=== PATIENT | male | born 1960 | race Caucasian/White ===

== ENCOUNTER → 2019-05-09 | Outpatient (CLI) | payer OTHER ==
--- NOTE | 2019-05-09 17:05 | CT ---
Procedure: CT LUNG SCREENING Exam Date: 05/09/2019. Ordering Provider: Dm Baron Clinical Indication: Personal history of tobacco use. Current cigarette smoker. 40 pack years. This patient meets eligibility criteria for low-dose CT lung cancer screening. Comparison: CT scan of the chest and thorax with and without contrast 06/23/2016. Technique: Using a multislice scanner, sequential helical axial imaging was obtained in the thorax, 2.5 mm thickness, 2.5 mm separation, from the level of the thoracic inlet through the lung bases without IV contrast. A low dose protocol was utilized for BMI less than 30: BMI: 29.8. CTDI: 1.76 mGy. 120. kVp. 45 mA. DLP: 73.28 mGy-centimeters. 2D sagittal and coronal reconstructed images, 6.0 mm thickness, were obtained. This exam was performed according to our departmental dose optimization program which includes use of automated exposure control, adjustment of the mA and/or kV according to patient size and/or use of iterative reconstruction technique. Nodule measurements under 10 mm are given as mean value of 3 axes diameters. FINDINGS: Lungs and large airways: Minimal peribronchial cuffing bilaterally. Minimally bilaterally. No abnormal nodules, no masses. No focal infiltrates. Pleura and space: Scattered bilateral focal thickening with no effusion or pneumothorax. Mediastinum and simran: evaluation limited by low dose technique and lack of IV contrast. Normal sized lymph nodes with the largest node approximately 1 cm in the subcarinal space. No dominant soft tissue masses. Heart and great vessels: Minimal calcifications in the pancreas evaluate vessels, aortic arch, and few calcifications in the coronary arteries. Chest wall, lower neck, axillae: Evaluation also limited by same factors as described above. 3.5 x 1.1 cm left axillary lymph node. 2.6 x 1 point for centimeter left axillary lymph node. Upper abdomen: Evaluation limited by low-dose technique. No free air or fluid in the included peritoneal space. Normal size and density of the adrenal glands and spleen. Partial visualization of the gallbladder. Osseous structures: Evaluation limited by low dose MIP technique. Minimal spondylosis in the thoracic spine. No lytic or blastic lesions. IMPRESSION: 1. Minimal bronchial wall thickening in the perihilar regions. Bilaterally minimally dilated airspaces, predominantly upper lung reyes. No abnormal nodules, no masses, or focal infiltrates. [facility] Best Practice recommendations: Please see below for Lung RADS category and FOLLOW-UP.* *Lung RADS category Category 1S - No nodule or definitely benign nodules (probability of malignancy less than 1%). Follow-up: Continue annual screening with Low Dose Chest CT in 12 months. 2. Lung RADS Modifier S - Clinically Significant or Potentially Clinically Significant Findings (non lung cancer). Bilateral enlarged lymph nodes in the axilla. Consider evaluation with ultrasound, along with any palpable axillary masses. Electronically signed by: Pravin Thomson MD 05/09/2019 5:02 PM CDT
== END ==
LOC: CT 10:00
PROVIDERS: ATTEND Family Medicine
DX: Z87.891 Personal history of nicotine dependence (principal); J98.4 Other disorders of lung
CPT/HCPCS: 10061; G0297

== ENCOUNTER 2019-06-11 | Emergency (ER) | payer OTHER ==
--- NOTE | 2019-06-11 15:47 | ED.PDOC ---
History of Present Illness - General Chief Complaint: General Stated Complaint: right shoulder pain, chronic Time Seen by Provider: 06/11/19 15:45 Source: patient Exam Limitations: no limitations - History of Present Illness Initial Comments: the patient is a 58-year-old male presenting with right shoulder pain that has been present for the last 20 years. He has been told multiple times in the past that he needs a joint replacement. He is having increased pain over the last few weeks because he has lost his pain management. No recent trauma. No new symptoms. He has pain over the right rhomboid muscle, over the right ac joint and he has obvious rotator cuff deficits with limitations in flexion and abduction. No neurological changes. Again no recent trauma. He appears to be vascularly intact. Timing/Duration: constant Severity: moderate Improving Factors: immobilization Worsening Factors: movement Associated Symptoms: denies symptoms Allergies/Adverse Reactions: Allergies NO KNOWN ALLERGY Allergy (Verified 06/11/19 14:30) Home Medications: Ambulatory Orders Cyclobenzaprine HCl [Flexeril] 10 mg PO TID PRN #20 tab 06/11/19 Lisinopril 06/11/19 Tramadol HCl 50 mg PO Q8HR PRN #30 tab 06/11/19 predniSONE [Prednisone] 20 mg PO DAILY #5 tab 06/11/19 Review of Systems - Review of Systems Constitutional: States: no symptoms reported EENTM: States: no symptoms reported Respiratory: States: no symptoms reported Cardiology: States: no symptoms reported Gastrointestinal/Abdominal: States: no symptoms reported Genitourinary: States: no symptoms reported Musculoskeletal: States: see HPI Skin: States: no symptoms reported Neurological: States: no symptoms reported Endocrine: States: no symptoms reported All other Systems: No Change from Baseline Past Medical History (General) - Patient Medical History Hx Seizures: No Hx Stroke: No Hx Dementia: No Hx Asthma: No Hx of COPD: No Hx Cardiac Disorders: No Hx Congestive Heart Failure: No Hx Pacemaker: No Hx Hypertension: Yes Hx Thyroid Disease: No Hx Diabetes: No Hx Gastroesophageal Reflux: No Hx Renal Disease: No Hx Cancer: No Hx of HIV: No Hx Hepatitis C: No Hx MRSA: No Surgical History: appendectomy - Vaccination History Hx Tetanus, Diphtheria Vaccination: No Hx Influenza Vaccination: No Hx Pneumococcal Vaccination: No Immunizations Up to Date: No - Social History Hx Tobacco Use: Yes Hx Chewing Tobacco Use: No Hx Alcohol Use: Yes Hx Substance Use: No Hx Substance Use Treatment: No Hx Depression: No Feels Threatened In Home Enviroment: No Feels Threatened In a Relationship: No Hx Physical Abuse: No Hx Emotional Abuse: No Hx Suspected Abuse: No - Female History Patient is a Female of Child Bearing Age (10 -59 yrs old): No Patient : No Family Medical History - Family History Mother Family History: No Known Living Status: Unknown Hx Family Asthma: No Hx Family Congestive Heart Failure: No Hx Family Hypertension: No Hx Family Stroke: No Hx Cardiac Disease: No Hx Family Diabetes: No Hx Family Cancer: No Physical Exam - Physical Exam General Appearance: Alert, Comfortable, No apparent distress Eye Exam: bilateral normal Ears, Nose, Throat: hearing grossly normal, normal ENT inspection Neck: full range of motion, supple Respiratory: no respiratory distress, no accessory muscle use Cardiovascular/Chest: normal peripheral pulses, no edema Peripheral Pulses: radial,right: 2+, radial,left: 2+ Rectal Exam: deferred Back Exam: no vertebral tenderness, other - tenderness to palpation over the right rhomboid muscle Extremity: no pedal edema, no calf tenderness, normal capillary refill, other Neurologic: skip pitman II-XII nml as tested, alert, normal mood/affect, oriented x 3 Skin Exam: normal color Comments: Vital Signs - 24 hr 06/11/19 06/11/19 14:32 15:28 Temperature 98.9 F Pulse Rate [ 82 64 Left Apical] Respiratory 18 18 Rate Blood Pressure 140/90 113/79 [Left Arm] O2 Sat by Pulse 98 98 Oximetry Progress - Progress Progress: 06/11/19 15:47 the patient is a 58-year-old male presenting to the emergency room secondary to chronic right shoulder pain worse since he has lost his pain management. He does need to try to do range of motion exercises and stretching exercises for the shoulder to prevent freezing up. He'll be written for some tramadol and Flexeril as well as some prednisone for the next week or so. He needs to get back with orthopedics and get his shoulder fixed. ER warnings were given. Departure - Departure Clinical Impression: Chronic shoulder pain Qualifiers: Laterality: right Qualified Code(s): M25.511 - Pain in right shoulder; G89.29 - Other chronic pain Disposition: Discharge to Home or Self Care Condition: Fair Departure Forms: ED Discharge - Pt. Copy, Patient Portal Self Enrollment Diet: regular diet Activity: increase activity as tolerated Referrals: JHONNY BAILEY IV [facility] [Primary Care Provider] - 1-2 Weeks Prescriptions: Tramadol HCl 50 mg PO Q8HR PRN #30 tab PRN Reason: Moderate Pain Cyclobenzaprine HCl [Flexeril] 10 mg PO TID PRN #20 tab PRN Reason: Muscle Spasms predniSONE [Prednisone] 20 mg PO DAILY #5 tab Home Medications: Ambulatory Orders Cyclobenzaprine HCl [Flexeril] 10 mg PO TID PRN #20 tab 06/11/19 Lisinopril 06/11/19 Tramadol HCl 50 mg PO Q8HR PRN #30 tab 06/11/19 predniSONE [Prednisone] 20 mg PO DAILY #5 tab 06/11/19 Additional Instructions: the patient is a 58-year-old male presenting to the emergency room secondary to chronic right shoulder pain worse since he has lost his pain management. He does need to try to do range of motion exercises and stretching exercises for the shoulder to prevent freezing up. He'll be written for some tramadol and Flexeril as well as some prednisone for the next week or so. He needs to get back with orthopedics and get his shoulder fixed. ER warnings were given.
== END 2019-06-11 16:00 | disposition home or self-care (01) ==

== ENCOUNTER 2019-07-08 16:08 | Emergency (ER) | payer OTHER ==
--- NOTE | 2019-07-08 17:22 | ED.PDOC ---
History of Present Illness - General Chief Complaint: Skin/Abrasion/Tear Time Seen by Provider: 07/08/19 17:20 Source: patient Exam Limitations: no limitations - History of Present Illness Initial Comments: the patient is a 58-year-old male presenting to emergency room secondary to recurrent breakout of a rash to his forearms and the posterior aspects of his lower legs. This has occurred on multiple occasions for him. The rash does itch and he does scratch until he forms a scab. He does have significant dry skin. No hives. Rash is papular. No obvious vesicles. Rash is most consistent with a contact dermatitis. Timing/Duration: 1 week Severity: moderate Improving Factors: nothing Worsening Factors: nothing Associated Symptoms: denies symptoms Allergies/Adverse Reactions: Allergies NO KNOWN ALLERGY Allergy (Verified 06/11/19 14:30) Home Medications: Ambulatory Orders Cyclobenzaprine HCl [Flexeril] 10 mg PO TID PRN #20 tab 06/11/19 Lisinopril 06/11/19 Tramadol HCl 50 mg PO Q8HR PRN #30 tab 06/11/19 predniSONE [Prednisone] 20 mg PO DAILY #5 tab 06/11/19 predniSONE [Prednisone] 20 mg PO DAILY #7 tab 07/08/19 Review of Systems - Review of Systems Constitutional: States: no symptoms reported EENTM: States: no symptoms reported Respiratory: States: no symptoms reported Cardiology: States: no symptoms reported Gastrointestinal/Abdominal: States: no symptoms reported Genitourinary: States: no symptoms reported Musculoskeletal: States: no symptoms reported Skin: States: see HPI Neurological: States: no symptoms reported Endocrine: States: no symptoms reported All other Systems: No Change from Baseline Past Medical History (General) - Patient Medical History Hx Seizures: No Hx Stroke: No Hx Dementia: No Hx Asthma: No Hx of COPD: No Hx Cardiac Disorders: No Hx Congestive Heart Failure: No Hx Pacemaker: No Hx Hypertension: Yes Hx Thyroid Disease: No Hx Diabetes: No Hx Gastroesophageal Reflux: No Hx Renal Disease: No Hx Cancer: No Hx of HIV: No Hx Hepatitis C: No Hx MRSA: No - Vaccination History Hx Tetanus, Diphtheria Vaccination: No Hx Influenza Vaccination: No Hx Pneumococcal Vaccination: No - Social History Hx Tobacco Use: Yes Hx Chewing Tobacco Use: No Hx Alcohol Use: Yes Hx Substance Use: No Hx Substance Use Treatment: No Hx Depression: No Hx Physical Abuse: No Hx Emotional Abuse: No Hx Suspected Abuse: No - Female History Patient : No Family Medical History - Family History Mother Family History: No Known Living Status: Unknown Hx Family Asthma: No Hx Family Congestive Heart Failure: No Hx Family Hypertension: No Hx Family Stroke: No Hx Cardiac Disease: No Hx Family Diabetes: No Hx Family Cancer: No Physical Exam - Physical Exam General Appearance: Alert, Comfortable, No apparent distress Eye Exam: bilateral normal Ears, Nose, Throat: hearing grossly normal Neck: full range of motion Respiratory: no respiratory distress, no accessory muscle use Cardiovascular/Chest: normal peripheral pulses, no edema, other - regular rate Peripheral Pulses: radial,right: 2+, radial,left: 2+, dorsalis pedis,right: 2+, dorsalis pedis,left: 2+ Gastrointestinal/Abdominal: soft Rectal Exam: deferred Back Exam: no CVA tenderness, no vertebral tenderness Extremity: normal range of motion, no pedal edema, normal capillary refill Neurologic: scientific research associate II-XII nml as tested, alert, normal mood/affect, oriented x 3 Skin Exam: other - see history of present illness Progress - Progress Progress: 07/08/19 17:22 the patient is a 58-year-old male presenting with what appears to be a contact dermatitis. The patient needs to order picker/assembler Eucerin cream and apply that 2-3 times daily to the affected areas. He is going to be written for 7 days of oral prednisone to help reduce the reaction. ER warnings were given. No evidence of infection at this time. Keep routine follow up with primary care doctor. aldo [email or web address] [id number] Departure - Departure Clinical Impression: Contact dermatitis and eczema Disposition: Discharge to Home or Self Care Condition: Fair Departure Forms: ED Discharge - Pt. Copy, Patient Portal Self Enrollment Instructions: Contact Dermatitis (DC) Diet: regular diet Activity: increase activity as tolerated Referrals: JHONNY BAILEY IV [facility] [Primary Care Provider] - 1-2 Weeks Prescriptions: predniSONE [Prednisone] 20 mg PO DAILY #7 tab Home Medications: Ambulatory Orders Cyclobenzaprine HCl [Flexeril] 10 mg PO TID PRN #20 tab 06/11/19 Lisinopril 06/11/19 Tramadol HCl 50 mg PO Q8HR PRN #30 tab 06/11/19 predniSONE [Prednisone] 20 mg PO DAILY #5 tab 06/11/19 predniSONE [Prednisone] 20 mg PO DAILY #7 tab 07/08/19 Additional Instructions: the patient is a 58-year-old male presenting with what appears to be a contact dermatitis. The patient needs to order picker/assembler Eucerin cream and apply that 2-3 times daily to the affected areas. He is going to be written for 7 days of oral prednisone to help reduce the reaction. ER warnings were given. No evidence of infection at this time. Keep routine follow up with primary care doctor.
[2019-07-08] MEDS ORDERED: predniSONE 20 MG TAB PO ONE (17:24)
[2019-07-08 17:46] VITALS: BP 148/79; TEMP 98.3; O2SAT 98
== END 2019-07-08 17:45 | disposition home or self-care (01) ==
LOC: ER 16:08
DX: L25.9 Unspecified contact dermatitis, unspecified cause (principal); I10 Essential (primary) hypertension; Z87.891 Personal history of nicotine dependence; Z79.899 Other long term (current) drug therapy

== ENCOUNTER 2019-08-04 09:12 | Emergency (ER) | payer OTHER ==
[2019-08-04] MEDS ORDERED: SODIUM CHLORIDE 0.9% 1000ML 1,000 ML IVS ONE (09:31)
--- NOTE | 2019-08-04 09:36 | ED.PDOC ---
History of Present Illness - General Chief Complaint: Eye Problems Stated Complaint: L eye swelling/itching x 1 day Time Seen by Provider: 08/04/19 09:30 Source: patient, RN notes reviewed, Vital Signs reviewed Exam Limitations: no limitations - History of Present Illness Initial Comments: patient is a 58-year-old white male who appears older than his stated age presents with complaints of left eye pain, swelling and itching.patient states that all of this started yesterday afternoon but was significantly worse this morning. The eye itself catches. He denies any mucopurulent discharge. On any blood thinners. Patient denies any blurry vision, headaches, nausea, vomiting, diarrhea, chest pain, shortness of breath or weakness. Patient denies any dizziness or vertiginous symptoms. Nothing seems to make the swelling or pain worse or better. Timing/Duration: gradual, yesterday Severity: moderate EENT Location: eye (L) - it appears also starting on the right eye now. Prearrival Treatment: no prearrival treatment Improving Factors: nothing Worsening Factors: nothing Associated Symptoms: facial pain/swelling Allergies/Adverse Reactions: Allergies NO KNOWN ALLERGY Allergy (Verified 08/04/19 09:30) Home Medications: Ambulatory Orders Lisinopril 20 mg PO DAILY 06/11/19 Clonazepam 1 mg PO BID 07/08/19 Gabapentin 600 mg PO TID 07/08/19 tiZANidine [Zanaflex] 4 mg PO TID 07/08/19 Clindamycin HCl [Cleocin] 300 mg PO QID #28 cap 08/04/19 Clindamycin HCl [Cleocin] 300 mg PO QID #28 cap 08/04/19 Review of Systems - Review of Systems Constitutional: States: no symptoms reported, see HPI. Denies: fever, malaise EENTM: States: see HPI, eye pain - mild and itchy.. Denies: blurred vision, tearing, double vision, ear discharge, nose pain, nose congestion, throat pain, throat swelling, mouth pain, mouth swelling Respiratory: States: no symptoms reported Cardiology: States: no symptoms reported Gastrointestinal/Abdominal: States: no symptoms reported Genitourinary: States: no symptoms reported Musculoskeletal: States: no symptoms reported Skin: States: no symptoms reported Neurological: States: no symptoms reported Endocrine: States: no symptoms reported Hematologic/Lymphatic: States: no symptoms reported All other Systems: Reviewed and Negative Past Medical History (General) - Patient Medical History Hx Seizures: No Hx Stroke: No Hx Dementia: No Hx Asthma: No Hx of COPD: No Hx Cardiac Disorders: No Hx Congestive Heart Failure: No Hx Pacemaker: No Hx Hypertension: Yes Hx Thyroid Disease: No Hx Diabetes: No Hx Gastroesophageal Reflux: No Hx Renal Disease: No Hx Cancer: No Hx of HIV: No Hx Hepatitis C: No Hx MRSA: No Surgical History: other - Vaccination History Hx Tetanus, Diphtheria Vaccination: No Hx Influenza Vaccination: Yes Hx Pneumococcal Vaccination: No - Social History Hx Tobacco Use: Yes Hx Chewing Tobacco Use: No Hx Alcohol Use: No Hx Substance Use: No Hx Substance Use Treatment: No Hx Depression: Yes Hx Physical Abuse: No Hx Emotional Abuse: No Hx Suspected Abuse: No - Female History Patient is a Female of Child Bearing Age (10 -59 yrs old): No Patient : No Family Medical History - Family History Mother Family History: No Known Living Status: Unknown Hx Family Asthma: No Hx Family Congestive Heart Failure: No Hx Family Hypertension: No Hx Family Stroke: No Hx Cardiac Disease: No Hx Family Diabetes: Yes Hx Family Cancer: No Physical Exam - Physical Exam General Appearance: Alert, Comfortable, Well Developed, Well Hydrated, Well Nourished Eye Exam: left other - patient with marked inferior lid edema with puffiness and tender to palpation. This area is warm., bilateral normal Ear Exam: bilateral ear: auricle normal Nasal Exam: normal inspection Throat Exam: normal mouth inspection, pharynx normal Neck: non-tender, full range of motion, supple, normal inspection, trachea midline Cardiovascular/Respiratory: regular rate, rhythm, no M/R/G, normal peripheral pulses, normal breath sounds, no respiratory distress Abdominal Exam: non-tender, no organomegaly Neurologic: product support rep II-XII nml as tested, no motor/sensory deficits, alert, normal mood/affect, oriented x 3 Skin Exam: normal color, warm/dry, other - patient with left periorbital swelling and edema. Progress - Progress Progress: 08/04/19 12:04 patient has been resting quietly in the department. He is nontoxic in appearance. Laboratory work has returned showing a white count of 12 with left shift consistent with infection. Eyes show an area of preseptal edema and cellulitis. plan discharge home with a prescription for antibiotics and follow up with PCP. I discussed the plan of care with the patient and he voices under standing and agreement. Pancho Gaffney M.D. #[id number] - Results/Orders Results/Orders: Laboratory Results - last 24 hr 08/04/19 08/04/19 09:46 09:46 WBC 12.0 H RBC 5.35 Hgb 16.9 Hct 50.2 MCV 94.0 MCH 31.7 H MCHC 33.7 RDW 13.3 Plt Count 237 MPV 8.0 Absolute Neuts (auto) 8.70 H Absolute Lymphs (auto) 1.90 Absolute Monos (auto) 0.90 H Absolute Eos (auto) 0.40 Absolute Basos (auto) 0.10 Neutrophils % 72.4 Lymphocytes % 15.9 L Monocytes % 7.7 Eosinophils % 3.2 Basophils % 0.8 Sodium 139 Potassium 4.1 Chloride 105 Carbon Dioxide 22 Anion Gap 16.1 BUN 12 Creatinine 0.88 BUN/Creatinine Ratio 13.6 Random Glucose 108 H Serum Osmolality 277.8 Calcium 9.0 Total Bilirubin 0.3 AST 22 ALT 26 Alkaline Phosphatase 85 Serum Total Protein 7.4 Albumin 4.0 Globulin 3.4 Albumin/Globulin Ratio 1.2 CT ORBITS WITH IV CONTRAST 08/04/2019 9:30 AM CDT Clinical: left periorbital swelling MAIN Comparison: No prior exam. Technique: Axial images were obtained. Sagittal and coronal MPR images are also submitted. The DLP is 184 mGy*cm. This exam was performed according to our department dose optimization protocol, which includes automated exposure control, adjustment of the mA and/or kV according to patient size and/or use of iterative reconstruction technique. Intravenous iodinated contrast was given. Findings: Deformity of the right nasal bone is noted suggestive of old fracture. No evidence of acute fracture or deformity is noted. Normal appearance of the globes and retrobulbar regions are noted. The optic nerves appear normal. Extraocular muscles appear normal. Minimal infraorbital preseptal soft tissue swelling is noted on the left side. No evidence of radiopaque foreign body is noted. Paranasal sinuses are clear. Normal appearance of the cavernous sinus and major intracranial vessels are noted. IMPRESSION: Mild degree of left preseptal infraorbital soft tissue swelling. Deformity of the right nasal bone suggestive of an old healed fracture. Electronically signed by: Jamila Kingston MD 08/04/2019 11:43 AM Departure - Departure Clinical Impression: Periorbital cellulitis of left eye Time of Disposition: 12:13 Disposition: Discharge to Home or Self Care Condition: Good Departure Forms: ED Discharge - Pt. Copy, Patient Portal Self Enrollment Instructions: DI for Eye Pain, Orbital Cellulitis (DC) Referrals: JHONNY BAILEY IV, LABEL CODER [Primary Care Provider] - 1-5 Days Prescriptions: Clindamycin HCl [Cleocin] 300 mg PO QID #28 cap Clindamycin HCl [Cleocin] 300 mg PO QID #28 cap Home Medications: Ambulatory Orders Lisinopril 20 mg PO DAILY 06/11/19 Clonazepam 1 mg PO BID 07/08/19 Gabapentin 600 mg PO TID 07/08/19 tiZANidine [Zanaflex] 4 mg PO TID 07/08/19 Clindamycin HCl [Cleocin] 300 mg PO QID #28 cap 08/04/19 Clindamycin HCl [Cleocin] 300 mg PO QID #28 cap 08/04/19
--- NOTE | 2019-08-04 11:44 | CT ---
CT ORBITS WITH IV CONTRAST 08/04/2019 9:30 AM CDT Clinical: left periorbital swelling MAIN Comparison: No prior exam. Technique: Axial images were obtained. Sagittal and coronal MPR images are also submitted. The DLP is 184 mGy*cm. This exam was performed according to our department dose optimization protocol, which includes automated exposure control, adjustment of the mA and/or kV according to patient size and/or use of iterative reconstruction technique. Intravenous iodinated contrast was given. Findings: Deformity of the right nasal bone is noted suggestive of old fracture. No evidence of acute fracture or deformity is noted. Normal appearance of the globes and retrobulbar regions are noted. The optic nerves appear normal. Extraocular muscles appear normal. Minimal infraorbital preseptal soft tissue swelling is noted on the left side. No evidence of radiopaque foreign body is noted. Paranasal sinuses are clear. Normal appearance of the cavernous sinus and major intracranial vessels are noted. IMPRESSION: Mild degree of left preseptal infraorbital soft tissue swelling. Deformity of the right nasal bone suggestive of an old healed fracture. Electronically signed by: Jamila Kingston MD 08/04/2019 11:43 AM CDT
[2019-08-04 12:30] VITALS: BP 151/99; TEMP 97; O2SAT 98
== END 2019-08-04 12:35 | disposition home or self-care (01) ==
LOC: ER 09:12
DX: L03.213 Periorbital cellulitis (principal); F32.9 Major depressive disorder, single episode, unspecified; I10 Essential (primary) hypertension; Z87.891 Personal history of nicotine dependence; Z79.899 Other long term (current) drug therapy
CPT/HCPCS: 36415; 70480; 80053; 85025; J7030

== ENCOUNTER 2019-09-30 14:19 | Emergency (ER) | payer OTHER ==
[2019-09-30] MEDS ORDERED: CYCLOBENZAPRINE HCL 10 MG TAB PO ONE (14:33)
[2019-09-30] MEDS ORDERED: predniSONE 20 MG TAB PO ONE (14:33)
[2019-09-30] MEDS ORDERED: ACETAMINOPHEN-CAFF-BUTALBITAL 1 EA TAB PO ONE (14:33)
--- NOTE | 2019-09-30 14:36 | ED.PDOC ---
History of Present Illness - General Chief Complaint: Upper Extremity Injury Stated Complaint: rotator cuff injuries Time Seen by Provider: 09/30/19 14:20 Source: patient Exam Limitations: no limitations - History of Present Illness Initial Comments: the patient a 58-year-old male presenting to emergency room secondary to severe chronic persistent bilateral shoulder pain related to DJD of the shoulder joints bilaterally along with DJD of the ac joints and chronic rotator cuff injuries. He reports that he has been denied surgical intervention by his insurance company. the patient has been taking [id number] anti- inflammatories. He reports that he has not slept in 4 days due to the pain. He has been unable to obtain a new pain management doctor as there are none available in the surrounding area. No new injuries. No acute neurological changes. No recent trauma. He does have pain diffusely surrounding the shoulder. Movement is severely limited in bilateral shoulders. Timing/Duration: constant, getting worse Severity: severe Improving Factors: immobilization Worsening Factors: movement Associated Symptoms: denies symptoms Allergies/Adverse Reactions: Allergies NO KNOWN ALLERGY Allergy (Verified 08/04/19 09:30) Home Medications: Ambulatory Orders Lisinopril 20 mg PO DAILY 06/11/19 Roqjazmutsbmo-Whon-Jtmdvneqpa [Fioricet] 1 ea PO Q8H PRN #30 tab 09/30/19 Cyclobenzaprine HCl [Flexeril] 10 mg PO TID PRN #20 tab 09/30/19 predniSONE [Prednisone] 20 mg PO DAILY #5 tab 09/30/19 Review of Systems - Review of Systems Constitutional: States: no symptoms reported EENTM: States: no symptoms reported Respiratory: States: no symptoms reported Cardiology: States: no symptoms reported Gastrointestinal/Abdominal: States: no symptoms reported Genitourinary: States: no symptoms reported Musculoskeletal: States: see HPI, back pain Skin: States: no symptoms reported Neurological: States: no symptoms reported Endocrine: States: no symptoms reported All other Systems: No Change from Baseline Past Medical History (General) - Patient Medical History Hx Seizures: No Hx Stroke: No Hx Dementia: No Hx Asthma: No Hx of COPD: No Hx Cardiac Disorders: No Hx Congestive Heart Failure: No Hx Pacemaker: No Hx Hypertension: Yes Hx Thyroid Disease: No Hx Diabetes: No Hx Gastroesophageal Reflux: No Hx Renal Disease: No Hx Cancer: No Hx of HIV: No Hx Hepatitis C: No Hx MRSA: No - Vaccination History Hx Tetanus, Diphtheria Vaccination: No Hx Influenza Vaccination: Yes Hx Pneumococcal Vaccination: No - Social History Hx Tobacco Use: Yes Hx Chewing Tobacco Use: No Hx Alcohol Use: No Hx Substance Use: No Hx Substance Use Treatment: No Hx Depression: Yes Hx Physical Abuse: No Hx Emotional Abuse: No Hx Suspected Abuse: No - Female History Patient : No Family Medical History - Family History Mother Family History: No Known Living Status: Unknown Hx Family Asthma: No Hx Family Congestive Heart Failure: No Hx Family Hypertension: No Hx Family Stroke: No Hx Cardiac Disease: No Hx Family Diabetes: Yes Hx Family Cancer: No Physical Exam - Physical Exam General Appearance: Alert, No apparent distress Eye Exam: bilateral normal Ears, Nose, Throat: hearing grossly normal, normal pharynx Respiratory: no respiratory distress, no accessory muscle use Cardiovascular/Chest: normal peripheral pulses, no edema Peripheral Pulses: radial,right: 2+, radial,left: 2+ Rectal Exam: deferred Back Exam: other - tenderness to palpation over the right rhomboid muscle. Extremity: no pedal edema, normal capillary refill, other - see history of present illness. 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 He is having persistent bilateral chronic shoulder pain related to degenerative disease. The patient will be written for prednisone for the next 5 days and he will be written for as needed use Flexeril and Fioricet. He does need to obtain an appointment with his primary care doctor for follow-up. Stretching and range of motion exercises as much can be tolerated, should be done. ER warnings were given for any acute worsening. Topical heat may help as well. aldo askew [id number] Departure - Departure Clinical Impression: Uncontrolled pain DJD of both shoulders Qualifiers: Osteoarthritis type: unspecified Qualified Code(s): M19.011 - Primary osteoarthritis, right shoulder; M19.012 - Primary osteoarthritis, left shoulder Disposition: Discharge to Home or Self Care Condition: Fair Departure Forms: ED Discharge - Pt. Copy, Patient Portal Self Enrollment Instructions: DI for Frozen Shoulder Diet: regular diet Activity: increase activity as tolerated Referrals: JHONNY BAILEY IV HEALTH EDUCATION TEACHER [Primary Care Provider] - 1-5 Days Prescriptions: Tcaqnjblyipjp-Hetu-Oakpjmhzqi [Fioricet] 1 ea PO Q8H PRN #30 tab PRN Reason: Pain Cyclobenzaprine HCl [Flexeril] 10 mg PO TID PRN #20 tab PRN Reason: Muscle Spasms predniSONE [Prednisone] 20 mg PO DAILY #5 tab Home Medications: Ambulatory Orders Lisinopril 20 mg PO DAILY 06/11/19 Ezexdohorijco-Svme-Tddpcbngpe [Fioricet] 1 ea PO Q8H PRN #30 tab 09/30/19 Cyclobenzaprine HCl [Flexeril] 10 mg PO TID PRN #20 tab 09/30/19 predniSONE [Prednisone] 20 mg PO DAILY #5 tab 09/30/19 Additional Instructions: the patient's 58-year-old male that has been seen here before for the same problem. He is having persistent bilateral chronic shoulder pain related to degenerative disease. The patient will be written for prednisone for the next 5 days and he will be written for as needed use Flexeril and Fioricet. He does need to obtain an appointment with his primary care doctor for follow-up. Stretching and range of motion exercises as much can be tolerated, should be done. ER warnings were given for any acute worsening. Topical heat may help as well.
[2019-09-30 14:52] VITALS: BP 171/107; TEMP 98.4; O2SAT 97
== END 2019-09-30 15:12 | disposition home or self-care (01) ==
LOC: ER 14:19
DX: M19.012 Primary osteoarthritis, left shoulder (principal); M19.011 Primary osteoarthritis, right shoulder; G89.29 Other chronic pain; F32.9 Major depressive disorder, single episode, unspecified; I10 Essential (primary) hypertension; Z87.891 Personal history of nicotine dependence; Z79.899 Other long term (current) drug therapy

== ENCOUNTER → 2019-10-29 | Outpatient (CLI) | payer OTHER | LOC: LAB.O 07:31 | PROVIDERS: ATTEND Family Medicine | DX: Z00.00 Encounter for general adult medical examination without abnormal findings (principal); I10 Essential (primary) hypertension; E78.5 Hyperlipidemia, unspecified; R53.83 Other fatigue; Z79.899 Other long term (current) drug therapy ==

== ENCOUNTER → 2019-11-02 | Outpatient (CLI) | payer OTHER ==
--- NOTE | 2019-11-03 22:45 | RAD ---
EXAM: Shoulder,Right 2 or More Views CLINICAL HISTORY: SHOULDER PAIN COMPARISON STUDY: None TECHNICAL: Internal and external rotation views of the shoulder in AP projection. FINDINGS: Internal and external rotation views of the shoulder in AP projection show no evidence of fracture or dislocation. There is no evidence of significant arthritic change. No soft tissue calcification is seen. The AC joint is unremarkable. IMPRESSION: UNREMARKABLE TWO VIEW RIGHT SHOULDER. Electronically signed by: Delmer Ford MD 11/03/2019 10:43 PM [facility]
--- NOTE | 2019-11-03 22:46 | RAD ---
EXAM: Shoulder,Left 2 or More Views CLINICAL HISTORY: SHOULDER PAIN COMPARISON STUDY: TECHNICAL: Internal and external rotation views of the shoulder in AP projection. FINDINGS: Internal and external rotation views of the shoulder in AP projection show no evidence of fracture or dislocation. There is no evidence of significant arthritic change. Chronic changes are seen along the greater tuberosity. No soft tissue calcification is seen. The AC joint is unremarkable. IMPRESSION: 1. No acute emboli. 2. Spurring at rotator cuff insertion on the greater tuberosity. Electronically signed by: Delmer Ford MD 11/03/2019 10:44 PM [facility]
== END ==
LOC: RAD 13:18
PROVIDERS: ATTEND Family Medicine
DX: M25.511 Pain in right shoulder (principal); M25.712 Osteophyte, left shoulder

== ENCOUNTER → 2020-03-04 | Outpatient (CLI) | payer OTHER | LOC: YCFC.O 07:40 | PROVIDERS: ATTEND Family Medicine | DX: I10 Essential (primary) hypertension (principal); E78.5 Hyperlipidemia, unspecified; R53.83 Other fatigue ==

== ENCOUNTER 2020-03-28 00:29 | Emergency (ER) | payer OTHER ==
--- NOTE | 2020-03-28 00:47 | ED.PDOC ---
History of Present Illness - General Chief Complaint: Chest Pain/KS Stated Complaint: chest pain Time Seen by Provider: 03/28/20 00:46 Source: patient Exam Limitations: no limitations - History of Present Illness Initial Comments: 59 yo M who presents for L sided pressure CP, onset an hour DIVORCE LAWYER, constant but improved at this time, no radiation, associated diaphoresis, SOB which he states is at baseline from his chronic smoking. Denies hx of KS. Full dose asa and nitro given en route. Denies f/c, cough, congestion, body aches, sore throat, COVID exposure, abd pain, n/v/d, edema, weakness, numbness. Allergies/Adverse Reactions: Allergies NO KNOWN ALLERGY Allergy (Verified 08/04/19 09:30) Home Medications: Ambulatory Orders Lisinopril 20 mg PO DAILY 06/11/19 Jzcdwfotmtxue-Apsv-Exjisikxaj [Fioricet] 1 ea PO Q8H PRN #30 tab 09/30/19 Cyclobenzaprine HCl [Flexeril] 10 mg PO TID PRN #20 tab 09/30/19 predniSONE [Prednisone] 20 mg PO DAILY #5 tab 09/30/19 Review of Systems - Review of Systems Constitutional: States: diaphoresis. Denies: chills, fever EENTM: Denies: nose congestion, throat pain Respiratory: States: short of breath. Denies: cough, stridor, wheezing Cardiology: States: chest pain. Denies: palpitations, syncope Gastrointestinal/Abdominal: Denies: abdominal pain, diarrhea, nausea, vomiting Genitourinary: Denies: dysuria, frequency, hematuria Musculoskeletal: Denies: back pain, neck pain Skin: Denies: lesions, rash Neurological: Denies: headache, numbness, weakness Endocrine: Denies: increased thirst, increased urine Hematologic/Lymphatic: Denies: easy bleeding, easy bruising Past Medical History (General) - Patient Medical History Hx Seizures: No Hx Stroke: No Hx Dementia: No Hx Asthma: No Hx of COPD: No Hx Cardiac Disorders: No Hx Congestive Heart Failure: No Hx Pacemaker: No Hx Hypertension: Yes Hx Thyroid Disease: No Hx Diabetes: No Hx Gastroesophageal Reflux: No Hx Renal Disease: No Hx Cancer: No Hx of HIV: No Hx Hepatitis C: No Hx MRSA: No - Vaccination History Hx Tetanus, Diphtheria Vaccination: No Hx Influenza Vaccination: Yes Hx Pneumococcal Vaccination: No - Social History Hx Tobacco Use: Yes Hx Chewing Tobacco Use: No Hx Alcohol Use: No Hx Substance Use: No Hx Substance Use Treatment: No Hx Depression: Yes Hx Physical Abuse: No Hx Emotional Abuse: No Hx Suspected Abuse: No - Female History Patient : No Family Medical History - Family History Mother Family History: No Known Living Status: Unknown Hx Family Asthma: No Hx Family Congestive Heart Failure: No Hx Family Hypertension: No Hx Family Stroke: No Hx Cardiac Disease: No Hx Family Diabetes: Yes Hx Family Cancer: No Physical Exam - Physical Exam General Appearance: Alert, No apparent distress, Well Developed, Well Nourished, Other - Slightly diaphoretic Eyes, Ears, Nose, Throat Exam: normal ENT inspection Neck: full range of motion, supple Respiratory: chest non-tender, lungs clear, normal breath sounds, no respiratory distress, no accessory muscle use Cardiovascular/Chest: normal peripheral pulses, regular rate, rhythm, no edema, no gallop, no JVD, no murmur Peripheral Pulses: radial,right: 2+, radial,left: 2+ Gastrointestinal/Abdominal: non tender, soft, no organomegaly, no pulsatile mass Extremity: normal range of motion, non-tender, normal inspection, no pedal edema, no calf tenderness, normal capillary refill Neurologic: no motor/sensory deficits, alert, normal mood/affect, oriented x 3 Skin Exam: normal color, warm/dry Progress - Progress Progress: 03/28/20 02:34 Only one SIRS criteria, no source of infection, CTA with mild bronchitis, will defer antibx at this time, will test for COVID. Discussed with pt results and need for transfer to facility with metallurgy laboratory technician capabilities and cardiology. Will transfer to [facility], pt agrees with plan of care. All questions and concerns addressed. 03/28/20 02:42 Discussed with irrigationist designer, Dr. Gutierrez, and ED physician Dr. Burger, pt acc epted for transfer. Request holding off on COVID test as they have the rapid test available and will test on his arrival. 03/28/20 02:49 Repeat trop elevated, will give dose of lovenox. Jennifer Brooks MD Emergency Medicine Physician Billing Number [id number] - Results/Orders Results/Orders: 03/28/20 01:00 EKG STAT Laboratory Results - last 24 hr 06/03/1203/28/20 03/28/20 00:45 00:45 00:45 WBC 19.9 H RBC 5.11 Hgb 16.3 Hct 47.8 MCV 93.6 MCH 32.0 H MCHC 34.2 RDW 14.0 Plt Count 278 MPV 8.6 Absolute Neuts (auto) 13.60 H Absolute Lymphs (auto) 3.90 H Absolute Monos (auto) 1.80 H Absolute Eos (auto) 0.40 Absolute Basos (auto) 0.20 H Neutrophils % 68.4 Lymphocytes % 19.7 L Monocytes % 8.8 Eosinophils % 2.2 Basophils % 0.9 D-Dimer, Quantitative Sodium 141 Potassium 3.6 Chloride 109 Carbon Dioxide 23 Anion Gap 12.6 BUN 15 Creatinine 1.18 BUN/Creatinine Ratio 12.7 Random Glucose 124 H Serum Osmolality 283.5 Calcium 9.0 Total Bilirubin 0.8 AST 31 ALT 33 Alkaline Phosphatase 93 Troponin I 0.05 Serum Total Protein 7.9 Albumin 4.6 Globulin 3.3 Albumin/Globulin Ratio 1.4 03/28/20 03/28/20 00:45 02:27 WBC RBC Hgb Hct MCV MCH MCHC RDW Plt Count MPV Absolute Neuts (auto) Absolute Lymphs (auto) Absolute Monos (auto) Absolute Eos (auto) Absolute Basos (auto) Neutrophils % Lymphocytes % Monocytes % Eosinophils % Basophils % D-Dimer, Quantitative 743 H* Sodium Potassium Chloride Carbon Dioxide Anion Gap BUN Creatinine BUN/Creatinine Ratio Random Glucose Serum Osmolality Calcium Total Bilirubin AST ALT Alkaline Phosphatase Troponin I 0.14 H* Serum Total Protein Albumin Globulin Albumin/Globulin Ratio CXR: EXAM: XR Chest, 2 Views CLINICAL HISTORY: The patient is 59 years old and is Male; CP TECHNIQUE: Frontal and lateral views of the chest. COMPARISON: No relevant prior studies available. FINDINGS: LUNGS: Mild interstitial opacity in the lower lobes is noted. The lungs are well-inflated. PLEURAL SPACE: Unremarkable. No pneumothorax. HEART: Unremarkable. No cardiomegaly. MEDIASTINUM: Unremarkable. BONES/JOINTS: Unremarkable. IMPRESSION: Mild interstitial opacity in the lung bases which may be secondary to atelectasis. De veloping infiltrate is within the differential. Electronically signed by: Tsering Parker MD 03/28/2020 1:30 AM CDT CTA chest: CT angiogram chest with contrast on 03/28/2020 CLINICAL INDICATION: Chest pain TECHNIQUE: Multiple axial images are obtained throughout the chest following the administration of IV contrast. Computer generated 3D reconstructions/MIPS were performed. This exam was performed according to our departmental dose- optimization program, which includes automated exposure control, adjustment of the mA and/or kV according to patient size and/or use of iterative reconstruction technique. Total DLP is 1825.21 mGy*cm. COMPARISON: 05/09/2019 FINDINGS: There is no pleural or pericardial effusion. There is no thoracic aortic aneurysm or dissection. The limited visualized upper abdomen is unremarkable. There is no thoracic adenopathy. There are no filling defects within the pulmonary arteries to suggest pulmonary embolus. There is some mild bronchial wall thickening suggesting mild bronchitis. There is minimal bilateral dependent atelectasis. Degenerative changes are noted in the spine. IMPRESSION: 1. No evidence of pulmonary embolus. 2. Mild bronchial wall thickening suggesting mild bronchitis. Electronically signed by: Abelardo Nix 03/28/2020 2:25 AM CDT Vital Signs - 24 hr 03/28/20 03/28/20 03/28/20 00:30 00:40 01:29 Temperature 96.9 F L Pulse Rate 84 84 72 Pulse Rate [ 84 84 72 tele monitor] Respiratory 16 16 Rate Blood Pressure 123/82 134/87 [Right Arm] O2 Sat by Pulse 92 L 97 Oximetry 03/28/20 02:00 Temperature Pulse Rate Pulse Rate [ 72 tele monitor] Respiratory 14 Rate Blood Pressure 121/64 [Right Arm] O2 Sat by Pulse 97 Oximetry - EKG/XRAY/CT Comments: NSR rate 82, ST changes, does not meet STEMI criteria - Additional EKG/XRAY/Consults Comments: NSR rate of 74, improved ST changes Departure - Departure Clinical Impression: NSTEMI (non-ST elevated myocardial infarction) Chest pain Qualifiers: Chest pain type: unspecified Qualified Code(s): R07.9 - Chest pain, unspecified Time of Disposition: 02:28 Disposition: Transfer to Hospital Condition: Fair Referrals: JHONNY BAILEY IV, CONTROLS DESIGN ENGINEER [Primary Care Provider] - 1-2 Weeks Home Medications: Ambulatory Orders Lisinopril 20 mg PO DAILY 06/11/19 Rrjjpcdsnmbjd-Lhpl-Xjmwjfvkah [Fioricet] 1 ea PO Q8H PRN #30 tab 09/30/19 Cyclobenzaprine HCl [Flexeril] 10 mg PO TID PRN #20 tab 09/30/19 predniSONE [Prednisone] 20 mg PO DAILY #5 tab 09/30/19
[2020-03-28] MEDS ORDERED: NITROGLYCERIN 0.4 MG 25 EA TAB SL ONE (01:20)
--- NOTE | 2020-03-28 01:32 | RAD ---
EXAM: XR Chest, 2 Views CLINICAL HISTORY: The patient is 59 years old and is Male; CP TECHNIQUE: Frontal and lateral views of the chest. COMPARISON: No relevant prior studies available. FINDINGS: LUNGS: Mild interstitial opacity in the lower lobes is noted. The lungs are well-inflated. PLEURAL SPACE: Unremarkable. No pneumothorax. HEART: Unremarkable. No cardiomegaly. MEDIASTINUM: Unremarkable. BONES/JOINTS: Unremarkable. IMPRESSION: Mild interstitial opacity in the lung bases which may be secondary to atelectasis. Developing infiltrate is within the differential. Electronically signed by: Tsering Parker MD 03/28/2020 1:30 AM CDT
--- NOTE | 2020-03-28 02:27 | CT ---
CT angiogram chest with contrast on 03/28/2020 CLINICAL INDICATION: Chest pain TECHNIQUE: Multiple axial images are obtained throughout the chest following the administration of IV contrast. Computer generated 3D reconstructions/MIPS were performed. This exam was performed according to our departmental dose-optimization program, which includes automated exposure control, adjustment of the mA and/or kV according to patient size and/or use of iterative reconstruction technique. Total DLP is 1825.21 mGy*cm. COMPARISON: 05/09/2019 FINDINGS: There is no pleural or pericardial effusion. There is no thoracic aortic aneurysm or dissection. The limited visualized upper abdomen is unremarkable. There is no thoracic adenopathy. There are no filling defects within the pulmonary arteries to suggest pulmonary embolus. There is some mild bronchial wall thickening suggesting mild bronchitis. There is minimal bilateral dependent atelectasis. Degenerative changes are noted in the spine. IMPRESSION: 1. No evidence of pulmonary embolus. 2. Mild bronchial wall thickening suggesting mild bronchitis. Electronically signed by: Abelardo Nix 03/28/2020 2:25 AM CDT
[2020-03-28] MEDS ORDERED: ENOXAPARIN SODIUM 100 MG/ML SYG SUBCU ONE (02:57)
[2020-03-28 06:18] VITALS: BP 146/86; TEMP 98.2; O2SAT 95
== END 2020-03-28 03:06 | disposition short-term general hospital (02) ==
LOC: ER 00:29
DX: I21.4 Non-ST elevation (NSTEMI) myocardial infarction (principal); R07.9 Chest pain, unspecified
CPT/HCPCS: 71046; 71275; 80053; 84484; 85025; 85379; 85610; 85730; 93005; J1650

== ENCOUNTER → 2020-11-26 | Outpatient (CLI) | payer OTHER ==
--- NOTE | 2020-11-27 11:21 | CT ---
Procedure: CT LUNG SCREENING Exam Date: November 26, 2020. Ordering Provider: Dm Baron Clinical Indication: TOBACCO DEPENDENCE . Current cigarette smoker. 40 pack years. This patient meets eligibility criteria for low-dose CT lung cancer screening. Comparison: CTA chest regular dose March 2020. Low-dose CT lung cancer screening examination April 2019. Technique: Using a multislice scanner, sequential helical axial imaging was obtained in the thorax, 2.5 mm thickness, 2.5 mm separation, from the level of the thoracic inlet through the lung bases without IV contrast. A low dose protocol was utilized for BMI greater than 30: BMI: 32. CTDI: 2.93 mGy. 120. kVp. 75 mA. DLP 119 mGy-cm. 2D sagittal and coronal reconstructed images, 6.0 mm thickness, were obtained. This exam was performed according to our departmental dose optimization program which includes use of automated exposure control, adjustment of the mA and/or kV according to patient size and/or use of iterative reconstruction technique. Nodule measurements under 10 mm are given as mean value of 3 axes diameters. FINDINGS: Lungs and large airways: Bilateral mild uniform glands in a centrilobular distribution predominantly upper lobes. Stable since the prior study. Stable nodule less than 4 mm diameter in the superior segment of the anterior left lower lobe abutting the posterior left major fissure on axial series 2, image 16. Bilateral perihilar peribronchial cuffing unchanged. Bilateral mild pleural parenchymal scarring in the base of the right middle lobe and inferior lingula is stable. No new abnormal nodules and no new mass. No focal infiltrate or interval development of infiltrate since the prior study. Pleura and space: No acute process. Stable bilateral thickening. Mediastinum and simran: evaluation limited by low dose technique and lack of IV contrast. 1 cm lymph node superior azygous space stable since the prior study. No abnormal size lymph nodes and no dominant soft tissue mass. No interval change. Heart and great vessels: Coronary artery calcifications. Minimal atherosclerotic calcifications in the aortic arch and brachiocephalic vessels, and descending thoracic aorta. No interval change. Chest wall, lower neck, axillae: Evaluation also limited by same factors as described above. Elongated right axillary node is stable since the prior study. Other subclavicular and axillary nodes unremarkable with no new soft tissue masses. Upper abdomen: Evaluation limited by low-dose technique. Gallbladder partially visualized. No free fluid or free air. Normal density and size of the spleen and adrenal glands. Osseous structures: Evaluation limited by low dose MIP technique. Inferior spur on the posterior mid right 11th rib with heterogeneous marrow signal stable since the prior study. Minimal spondylosis mid and lower thoracic spine unchanged. IMPRESSION: 1. Stable solid nodule less than 4 mm diameter in the superior segment left lower lobe abutting the left major fissure. No new abnormal nodules or mass. No focal air interval development of infiltrate. Bilateral axillary lymph nodes are stable.. [facility] Best Practice Recommendations: please see below for Lung RADS category and FOLLOW-UP.* *Lung RADS category Category 1 - No nodule or definitely benign nodules (probability of malignancy less than 1%). Follow-up: Continue annual screening with Low Dose Chest CT in 12 months. Electronically signed by: Pravin Thomson MD 11/27/2020 11:19 AM [facility]
== END ==
LOC: CT 08:50
PROVIDERS: ATTEND Family Medicine
DX: F17.200 Nicotine dependence, unspecified, uncomplicated (principal); R91.1 Solitary pulmonary nodule